=== PATIENT | female | born 1990 | race Caucasian/White ===

== ENCOUNTER 2017-09-09 12:23 | Emergency (ER) | payer OTHER ==
[~2017-09-09] VITALS: Ht 165.1 cm; Wt 56.7 kg
[2017-09-09 12:23] VITALS: BP_SYST 139
[2017-09-09 13:35] VITALS: BP_SYST 139
== END 2017-09-09 13:35 | disposition home or self-care (01) ==
LOC: SED 12:23
DX: S93.602A Unspecified sprain of left foot, initial encounter (principal); R03.0 Elevated blood-pressure reading, without diagnosis of hypertension; W10.9XXA Fall (on) (from) unspecified stairs and steps, initial encounter; Y93.01 Activity, walking, marching and hiking; Y92.89 Other specified places as the place of occurrence of the external cause; Y99.8 Other external cause status
CPT/HCPCS: 99284